=== PATIENT | male | born 1960 | race Caucasian/White ===

== ENCOUNTER 2019-01-25 14:47 | Inpatient (IN) | payer OTHER ==
[2019-01-25] MEDS ORDERED: BUPIVACAINE MPF 0.5% 30 ML VIAL. ONE (16:05)
[2019-01-25] MEDS ORDERED: IV RINGERS,LACTATED 1000ML 1,000 ML IV SCH (16:54)
[2019-01-25] MEDS ORDERED: fentaNYL PF VIAL 100 MCG/2 ML VIAL IV PRN (17:00)
[2019-01-25] MEDS ORDERED: MORPHINE SULFATE 2 MG/ML VIAL. IV PRN (17:00)
[2019-01-25] MEDS ORDERED: PROCHLORPERAZINE 10 MG/2 ML VIAL. IV PRN (17:00)
[2019-01-25] MEDS ORDERED: HYDROmorphone 2 MG/ML VIAL IV PRN (17:00)
[2019-01-25] MEDS ORDERED: ONDANSETRON PF 4 MG/2 ML VIAL. IV PRN (17:00)
[2019-01-25] MEDS ORDERED: fentaNYL PF VIAL 100 MCG/2 ML VIAL ONE ×2 (17:02→18:13)
[2019-01-25] MEDS ORDERED: PROPOFOL 20 ML IV ONE (17:02)
[2019-01-25] MEDS ORDERED: ceFAZolin SODIUM 1 GM VIAL ONE (17:02)
[2019-01-25] MEDS ORDERED: ONDANSETRON PF 4 MG/2 ML VIAL. ONE (17:02)
[2019-01-25] MEDS ORDERED: DEXAMETHASONE SOD PHOS 4 MG/ML VIAL ONE (17:02)
[2019-01-25] MEDS ORDERED: LIDOCAINE 2% PF 5 ML VIAL. ONE (17:02)
[2019-01-25] MEDS ORDERED: KETOROLAC 30 MG/ML INJ FOR OR. INJ ONE (17:03)
[2019-01-25] MEDS ORDERED: OXYC1TAB15 PO (18:07)
[2019-01-25] MEDS ORDERED: SEVOFLURANE 61 TO 120 MINUTES. IH ONE (18:11)
--- NOTE | 2019-01-25 18:14 | DISCH ---
DISCHARGE INSTRUCTIONS Condition on Discharge Condition on Discharge: Stable Activity After Discharge Activity Instructions for Disc: Other, see below (fine motor use of right hand only no hard grasping or lifting) Diet after Discharge Diet after Discharge: Regular Wound Incision Care Wound/Incision Care: Ice to area for comfort, Keep wound elevated, Do not gibson e dressing Contacting the after DC Call your doctor for: Concerns you may have Follow-Up Follow up with: Dr. Chinchilla 7-10 days WILLY CHINCHILLA MD Jan 25, 2019 18:14
[2019-01-25] MEDS ORDERED: oxyCODONE/APAP 5/325 1 TAB TABLET PO ONE (18:15)
[2019-01-25] MEDS: fentaNYL PF VIAL 100 MCG/2 ML VIAL IV PRN ×2 (18:16→18:29)
--- NOTE | 2019-01-25 18:24 | PDOC4 ---
Operative Note Operative Note Date of surgery: 01/25/2019 Preoperative diagnosis: Displaced intra-articular right distal radius fracture Postoperative diagnosis: Same, 2 part intra-articular Operative procedure: Operative reduction internal fixation 2 part intra- articular right distal radius fracture Surgeon: Renée Anesthesia: Gen. Estimated blood loss: Less than 5 mL Complications: None Operative indications: Patient is an active 58-year-old male that fell getting d own from a ladder while in the yard today and presented initially to [facility] emergency department and was found to have a right wrist fracture and some right knee pain with negative x-rays and he has been ambulatory since with relatively minimal discomfort. He is a very active individual just completed a 200 mile mountain bike ride and is right-hand dominant. I had gone over with he and his the x-rays showing the alignment concerns at the joint and the recommended operative treatment to obtain and maintain alignment at the joint surface as well as other areas. We talked about generally the difficulty doing this otherwise and closed means. All his questions were answered he understands the possibility of infection nerve or blood vessel damage medical or other anesthetic complications of the surgery and even under the best of circumstances some stiffness and soreness he agrees to proceed with surgical evaluation and treatment. Operative text: Patient was identified procedure verified patient placed in the supine position on the operating table. After adequate amounts of general anesthesia were administered the right upper extremity was prepped and draped in standard sterile fashion with an upper arm tourniquet. After timeout was performed patient procedure identified and verified, the right upper extremity was exsanguinated by Esmarch bandage tourniquet inflated to 250 mmHg and a Adam approach was carried out to the distal radius subperiosteal dissection was carried out and anatomic reduction obtained under fluoroscopic guidance and a standard Amelia DVR distal radius volar plate was placed under fluoroscopic guidance and a single nonlocking screw placed in the sliding shaft hole. After alignment was verified distal locking screws were placed under fluoroscopic guidance and showed excellent anatomic alignment at the joint surface proximal row screws were then placed in a locking fashion and additional shaft screws in a nonlocking fashion to complete the fixation. Hardware placement and reduction were noted to be anatomic under multiple fluoroscopic views thorough irrigation carried out normal saline solution closure accomplished with buried Vicryl subcuticular Monocryl Steri-Strips and Mastisol. A total of approximately 24 mL of half percent plain Marcaine were infused subcutaneous and sterile dressings laced followed by a well-padded volar splint. Fingers were noted to be warm and pink following deflation of the tourniquet patient was returned recovery room in stable condition having tolerated procedure well WILLY CHAND MD Jan 25, 2019 18:24
--- NOTE | 2019-01-25 19:04 | HP ---
ADMIT DATE: 01/25/2019 PRINCIPAL DIAGNOSIS: Fall from ladder with displaced intra-articular right distal radius fracture. HISTORY OF PRESENT ILLNESS: The patient is an active, healthy 58-year-old male who was up working on a ladder today and the ladder went out from under him as he was getting down. He had immediate pain, deformity in the right wrist as well as some pain in his right knee, was revealed to have on x-rays at [facility] Emergency Department displaced intra-articular distal radius fracture and negative x-rays of the right knee. He was since ambulatory and came by personal vehicle to [facility] for further treatment of his right wrist fracture. PAST MEDICAL HISTORY: Minimal. ALLERGIES: He has no known drug allergies. REVIEW OF SYSTEMS: Significant for the wrist pain and deformity, which is a major problem and some initial knee soreness, but overall manageable. Denies any head trauma, loss of consciousness, neck or back pain, abdominal pain, radiating pain, focal weakness, numbness, tingling or other complaints. PHYSICAL EXAMINATION: GENERAL: A pleasant, cooperative 58-year-old male, alert and oriented, in no acute distress. HEENT: Atraumatic, normocephalic. HEART: Regular rate and rhythm. LUNGS: Clear to auscultation bilaterally. ABDOMEN: Benign. EXTREMITIES: Examination of the right knee reveals full range of motion, normal ligament stability, minimal joint line tenderness. No effusion, good patellofemoral tracking. Normal examination of contralateral knee and lower extremities. On examination of the upper extremities, he has obvious deformity of the right wrist. He can flex and extend the fingers. Distal pulses and sensation are intact. Normal examination of the contralateral wrist, bilateral elbows and shoulders. IMAGING: X-rays show a displaced intra-articular right distal radius fracture. X-rays of the right knee shows well-maintained joint spaces. No evidence of fracture. IMPRESSION: Right intra-articular distal radius fracture. TREATMENT PLAN: I went over with him and his the x-ray findings and the rationale for operative treatment. The expected inferior results of nonoperative treatment due to the intra-articular extension and displacement. We talked about the possibility of closed reduction, but the fact that usually the fracture ends up back at the pre-reduction state and did cover risks, benefits, postoperative course of operative reduction and internal fixation with plate and screw fixation, possibility of infection, nerve or blood vessel damage, medical or other anesthetic complications and the rationale of restoring the anatomy as closely as possible and even under the best of circumstances, the possibility of some soreness and stiffness even with good healing. All his questions were answered. We are going to proceed with surgical evaluation and treatment today. WILLY CHAND MD DR: NEYMAR/erin JOB#: [id number] / [id number]
[2019-01-25 19:44] VITALS: BP 143/78
[2019-01-26] MEDS ORDERED: oxyCODONE/APAP 5/325 1 TAB TABLET ONE (06:34)
== END 2019-01-25 19:44 | disposition home or self-care (01) | DRG 512 ==
LOC: 4 NORTH 16:04
PROVIDERS: ADMIT Orthopaedic Surgery; ATTEND Orthopaedic Surgery
PROC: 0PSH04Z Reposition Right Radius with Internal Fixation Device, Open Approach (ICD-10-PCS; principal; 2019-01-25 16:13)
DX: S52.571A Other intraarticular fracture of lower end of right radius, initial encounter for closed fracture (principal); W11.XXXA Fall on and from ladder, initial encounter; Y93.89 Activity, other specified; Y92.89 Other specified places as the place of occurrence of the external cause; Y99.8 Other external cause status
CPT/HCPCS: A7015; C1713; J0690; J1100; J1885; J2001; J2405; J2704; J3010; J3490; J7120